=== PATIENT | female | born 1995 | race Caucasian/White ===

== ENCOUNTER → 2017-01-14 | Outpatient (CLI) | payer SELFPAY ==
[~2017-01-14] MED LIST: ZYRTEC10 MG PO
== END ==
LOC: BHSO 08:26
DX: F41.0 Panic disorder [episodic paroxysmal anxiety] (principal)

== ENCOUNTER → 2017-06-01 | Outpatient (CLI) | payer SELFPAY | LOC: BHSO 15:07 | DX: F41.1 Generalized anxiety disorder (principal) ==

== ENCOUNTER → 2017-07-06 | Outpatient (CLI) | payer MEDICAID | LOC: BHSO 10:13 | DX: F41.1 Generalized anxiety disorder (principal) ==

== ENCOUNTER → 2017-08-03 | Outpatient (CLI) | payer MEDICAID | LOC: BHSO 15:05 | DX: F41.1 Generalized anxiety disorder (principal) ==

== ENCOUNTER 2017-12-26 01:14 | Inpatient (IN) | payer MEDICAID ==
[2017-12-26] VITALS (32 sets, daily range): BP systolic 101–138; BP diastolic 56–88; PULSE 75–110; TEMP 97.5–98.5
[~2017-12-26] VITALS: Ht 162.6 cm; Wt 73.2 kg
[2017-12-26] MEDS ORDERED: ZOLOFT 100MG100 MG PO (01:37)
[2017-12-26] MEDS ORDERED: CLARITIN 1010 MG/TAB PO (01:37)
[2017-12-26] MEDS ORDERED: PRENATAL1 TA7 PO (01:38)
[2017-12-26 02:42] LABS: BASO # 0.1 (0.0-0.2); BASO % 0.4 % (0.0-2.0); EOS % 0.3 % (0-4.0); GRAN # 9.8 (1.4-6.5); GRAN % 70.4 % (42.2-75.2); LYMPH # 2.5 (1.2-3.4); LYMPH % 17.7 % (20.0-51.0); MEAN CELL VOLUME 88 fl (80.0-100.0); MEAN CORPUSCULAR HGB CONC 35 g/dl (33.0-37.0); MEAN PLATELET VOLUME 10.5 fl (7.4-10.4); MONO # 1.3 (0.1-0.6); PLATELET COUNT 221 K/mm3 (130-400); RED BLOOD COUNT 3.48 M/mm3 (4.10-5.30); REDCELL DISTRIBUTION WIDTH-CV 12.9 % (11.5-14.5)
[2017-12-26 02:46] LABS: HEMATOCRIT 30.7 % (37.0-47.0); HEMOGLOBIN 10.6 g/dl (12.5-16.0); MEAN CORPUSCULAR HEMOGLOBIN 30 pg (27.0-31.0)
[2017-12-27 08:30] VITALS: BP 107/70; PULSE 90; TEMP 98
[2017-12-27 15:23] VITALS: BP 104/70; PULSE 114; TEMP 98.4
[2017-12-27 22:00] VITALS: BP 114/76; PULSE 84; TEMP 98.3
[2017-12-28 07:44] VITALS: BP 104/67; PULSE 80; TEMP 97.6
[2017-12-28] MEDS ORDERED: MOTRIN 800800 MG/TAB PO (08:51)
[2017-12-28] MEDS ORDERED: PERCOCET 325 MG1 TA2 PO (08:51)
== END 2017-12-28 17:16 | disposition home or self-care (01) | DRG 775 ==
LOC: LDRO 01:14 → OB 02:16 → LDR 02:16 → OB 14:45
PROVIDERS: Obstetrics & Gynecology
PROC: 10D07Z6 Extraction of Products of Conception, Vacuum, Via Natural or Artificial Opening (ICD-10-PCS; principal; 2017-12-26)
PROC: 0UQMXZZ Repair Vulva, External Approach (ICD-10-PCS; 2017-12-26)
PROC: 0HQ9XZZ Repair Perineum Skin, External Approach (ICD-10-PCS; 2017-12-26)
DX: O36.5930 Maternal care for other known or suspected poor fetal growth, third trimester, not applicable or unspecified (principal); O36.0130 Maternal care for anti-D [Rh] antibodies, third trimester, not applicable or unspecified; O69.81X0 Labor and delivery complicated by cord around neck, without compression, not applicable or unspecified; O76 Abnormality in fetal heart rate and rhythm complicating labor and delivery; O71.82 Other specified trauma to perineum and vulva; O70.0 First degree perineal laceration during delivery; Z3A.38 38 weeks gestation of pregnancy; Z37.0 Single live birth
CPT/HCPCS: J2590; J2791; J2795; J7120

== ENCOUNTER → 2018-01-14 | Outpatient (CLI) | payer MEDICAID ==
[~2018-01-14] MED LIST changes: +CLARITIN 1010 MG/TAB PO; +MOTRIN 800800 MG/TAB PO; +PERCOCET 325 MG1 TA2 PO; +PRENATAL1 TA7 PO; +ZOLOFT 100MG100 MG PO
== END ==
LOC: BHSO 13:37
DX: F41.0 Panic disorder [episodic paroxysmal anxiety] (principal)
CPT/HCPCS: G0463

== ENCOUNTER → 2018-10-11 | Outpatient (CLI) | payer MEDICAID | LOC: BHSO 14:15 | DX: F41.1 Generalized anxiety disorder (principal) | CPT/HCPCS: G0463 ==

== ENCOUNTER → 2018-12-03 | Outpatient (CLI) | payer MEDICAID | LOC: BHSO 15:45 | DX: F41.0 Panic disorder [episodic paroxysmal anxiety] (principal) ==